=== PATIENT | female | born 1970 | race American Indian/Alaskan Native ===

== ENCOUNTER 2020-01-07 19:07 | Emergency (ER) | payer MEDICAID ==
[2020-01-07] MEDS ORDERED: methylPREDNISolone Sodium Succinate 125 MG/2 ML SDV IM ONE (19:35)
[2020-01-07] MEDS ORDERED: Albuterol/Ipratropium 3.0-0.5 MG/3 ML Neb Soln NEB ONE (19:35)
--- NOTE | 2020-01-07 21:05 | EDM.PDOC ---
ED HPI GENERAL MEDICAL PROBLEM - General Chief Complaint: Respiratory Problem Stated Complaint: cough Time Seen by Provider: 01/07/20 19:15 Source of Information: Reports: Patient History Limitations: Reports: No Limitations - History of Present Illness INITIAL COMMENTS - FREE TEXT/NARRATIVE: Patient presented to the ED because of coughing and dyspnea for 2 days. The cough is mostly non-productive,denies having fever,chills or malaise. She ran out of her albuteol inhaler since last week. 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: Musculoskeletal History: Reports: Fracture, Other (See Below) Other Musculoskeletal History: several fractures in hands and fingers Dermatologic History: Reports: Eczema - Past Surgical History GI Surgical History: Reports: Cholecystectomy Female Surgical History: Reports: Section, Hysterectomy Endocrine Surgical History: Reports: Thyroid Biopsy, Thyroidectomy Social & Family History - Family History Family Medical History: Noncontributory - Tobacco Use Smoking Status *Q: Former Smoker Used Tobacco, but Quit: Yes Month/Year Tobacco Last Used: 12/09 - Caffeine Use Caffeine Use: Reports: Coffee, Soda - Recreational Drug Use Recreational Drug Use: No ED ROS GENERAL - Review of Systems Review Of Systems: See Below Constitutional: Reports: No Symptoms HEENT: Reports: No Symptoms Respiratory: Reports: Shortness of Breath, Wheezing Cardiovascular: Reports: No Symptoms Endocrine: Reports: No Symptoms GI/Abdominal: Reports: No Symptoms : Reports: No Symptoms Musculoskeletal: Reports: No Symptoms Skin: Reports: No Symptoms Neurological: Reports: No Symptoms Psychiatric: Reports: No Symptoms ED EXAM, GENERAL - Physical Exam Exam: See Below Exam Limited By: No Limitations General Appearance: Alert, No Apparent Distress Eye Exam: Bilateral Eye: PERRL Ears: Normal External Exam, Normal Canal, Hearing Grossly Normal Nose: Normal Inspection, Normal Mucosa, No Blood Throat/Mouth: Normal Inspection, Normal Lips Head: Atraumatic, Normocephalic Neck: Normal Inspection, Supple, Non-Tender, Full Range of Motion Respiratory/Chest: No Respiratory Distress, Lungs Clear, Rhonchi, Wheezing Cardiovascular: Normal Peripheral Pulses, Regular Rate, Rhythm, No Edema, No Gallop, No Rub GI/Abdominal: Normal Bowel Sounds, Soft, Non-Tender, No Organomegaly Back Exam: Normal Inspection, Full Range of Motion Extremities: Normal Inspection, Normal Range of Motion Neurological: Alert, Oriented, CN II-XII Intact, Normal Cognition, Normal Gait, No Motor/Sensory Deficits Course - Vital Signs Text/Narrative:: CXR-nek duoneb x1 solumedrol 125 mg IM x1 Last Recorded V/S: Last Vital Signs Temp 36.8 C 01/07/20 19:10 Pulse 98 01/07/20 21:03 Resp 20 01/07/20 21:03 BP 134/83 01/07/20 21:03 Pulse Ox 96 01/07/20 21:03 - Orders/Labs/Meds Orders: Active Orders 24 hr Category Date Time Status RT Aerosol Therapy [RC] ASDIRECTED Care 01/07/20 19:36 Active Chest 2V [CR] Stat Exams 01/07/20 19:36 Taken Meds: Medications Discontinued Medications Generic Name Dose Route Start Last Admin Trade Name Freq PRN Reason Stop Dose Admin Albuterol/Ipratropium 3 ml 01/07/20 19:35 01/07/20 19:49 Duoneb 3.0-0.5 Mg/3 Ml NEB 01/07/20 19:36 3 ml ONETIME ONE Administration Methylprednisolone Sodium Succinate 125 mg 01/07/20 19:35 01/07/20 19:49 Solu-Medrol IM 01/07/20 19:36 125 mg ONETIME ONE Administration Departure - Departure Time of Disposition: 21:00 Disposition: Home, Self-Care 01 Condition: Good Clinical Impression: Asthma exacerbation - Discharge Information Prescriptions: Albuterol [Ventolin HFA] 2 puff IH Q4H PRN #1 inhaler PRN Reason: wheezing/shortness of breath predniSONE 40 mg PO DAILY #10 tab Instructions: Asthma, Adult Referrals: PCP,None [Primary Care Provider] - Forms: ED Department Discharge Additional Instructions: please read discharge instructions on asthma exacerbation increase oral fluids prednisone 40 mg daily for 5 days albuterol inhaler, 2 puffs every 4-6 hours as needed for wheezing and shortness of breath follow up as needed Sepsis Event Note - Evaluation Sepsis Screening Result: No Definite Risk - Focused Exam Vital Signs: Vital Signs Temp Pulse Resp BP Pulse Ox 01/07/20 21:03 98 20 134/83 96 01/07/20 19:10 36.8 C 112 H 12 132/79 95 Date Exam was Performed: 01/07/20 Time Exam was Performed: 22:28 - My Orders Last 24 Hours: My Active Orders 01/07/20 19:36 RT Aerosol Therapy [RC] ASDIRECTED Chest 2V [CR] Stat - Assessment/Plan Last 24 Hours: My Active Orders 01/07/20 19:36 RT Aerosol Therapy [RC] ASDIRECTED Chest 2V [CR] Stat
--- NOTE | 2020-01-08 10:59 | CR ---
INDICATION: Cough, dyspnea. CHEST, 2 VIEWS: PA and lateral views of the chest, 01/07/20 - no comparisons. The heart appears normal in size and shape. Some minimal calcification suggested in the arch of the aorta. [id number] degenerative hypertrophic changes are noted off vertebral bodies in the lower thoracic spine. A definite active infiltrate or effusion was not identified. Overlying EKG leads are noted. IMPRESSION: No acute process. MTDD
== END 2020-01-07 21:13 | disposition home or self-care (01) ==
LOC: FB.ED 19:07
DX: J45.901 Unspecified asthma with (acute) exacerbation (principal); Z91.040 Latex allergy status; Z88.8 Allergy status to other drugs, medicaments and biological substances; Z87.891 Personal history of nicotine dependence
CPT/HCPCS: 71046; 94640; 96372; 99285; J2930; J7620-GY

== ENCOUNTER 2021-09-22 16:26 | Emergency (ER) | payer MEDICAID ==
--- NOTE | 2021-09-22 16:36 | EDM.PDOC ---
ED HPI GENERAL MEDICAL PROBLEM - General Stated Complaint: COUGH, SOB Time Seen by Provider: 09/22/21 16:35 Source of Information: Reports: Patient History Limitations: Reports: No Limitations - History of Present Illness INITIAL COMMENTS - FREE TEXT/NARRATIVE: 50-year-old female who reports Covid 19 infection on 08/09/2021 and she reports that since then she has had a persisting cough extend waned but over the past week she has noticed an increase in the cough with production of creamy white somewhat thick phlegm and the feeling of increased shortness of breath. She reports that she does cough to the point of emesis at times. She has been using her albuterol inhaler without much relief. She has tried opdy-tlo-ejjspgh medications without any relief. She has been able to drink liquids well. She d oes have pain in the lateral aspect of both chest that is worse with cough and feels like it's in the muscles. She has had no measured fever. She reports the pain in her chest with cough goes up to a 10/10. It is a sore in sharp-type pain. No abdominal pain. No dysuria or hematuria. There are no other associated signs or symptoms. There are no other modifying factors. 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 Erdk-[id number] medications.) Bilateral Upper Back Pain Score (Numeric/FACES): 10 - Related Data Allergies Allergy/AdvReac Type Severity Reaction Status Date / Time latex Allergy Other Verified 01/07/20 20:57 pseudoephedrine Allergy Other Verified 01/07/20 20:57 [From [facility]] Home Meds: Home Meds Albuterol [Proventil HFA] 2 puff INH ASDIRECTED PRN 01/07/20 [History] Azithromycin [Zithromax] 250 mg PO DAILY #4 tab 09/22/21 [Rx] predniSONE [Prednisone] 60 mg PO QAM 5 Days #15 tablet 09/22/21 [Rx] Past Medical History HEENT History: Reports: Impaired Vision Respiratory History: Reports: Asthma Musculoskeletal History: Reports: Fracture, Other (See Below) Other Musculoskeletal History: several fractures in hands and fingers Dermatologic History: Reports: Eczema - Past Surgical History GI Surgical History: Reports: Cholecystectomy Female Surgical History: Reports: Section, Hysterectomy Endocrine Surgical History: Reports: Thyroid Biopsy, Thyroidectomy Social & Family History - Tobacco Use Tobacco Use Status *Q: Unknown Ever Used Tobacco (Nonsmoker) - Caffeine Use Caffeine Use: Reports: Coffee, Soda - Alcohol Use Alcohol Use History: No ED ROS GENERAL - Review of Systems Review Of Systems: See Below Constitutional: Reports: Malaise. Denies: Fever, Chills HEENT: Denies: Throat Pain, Throat Swelling Respiratory: Reports: Shortness of Breath, Cough Cardiovascular: Reports: Chest Pain. Denies: Lightheadedness, Palpitations GI/Abdominal: Denies: Nausea, Vomiting : Denies: Dysuria, Hematuria Musculoskeletal: Denies: Back Pain, Leg Pain, Foot Pain Skin: Denies: Diaphoresis, Rash Neurological: Denies: Confusion, Dizziness Hematologic/Lymphatic: Denies: Easy Bleeding, Easy Bruising ED EXAM, GENERAL - Physical Exam Exam: See Below Exam Limited By: No Limitations General Appearance: Alert, WD/WN, Mild Distress, Other (Hacking cough. No respiratory distress.) Eye Exam: Bilateral Eye: EOMI, Normal Inspection, PERRL Ears: Normal External Exam, Hearing Grossly Normal Ear Exam: Bilateral Ear: Auricle Normal Nose: No Blood, Nasal Drainage Throat/Mouth: Normal Inspection, Normal Lips, Normal Teeth Head: Atraumatic, Normocephalic Respiratory/Chest: No Respiratory Distress, Lungs Clear, Normal Breath Sounds, N o Accessory Muscle Use, Chest Non-Tender Cardiovascular: Normal Peripheral Pulses, Regular Rate, Rhythm, No Edema Peripheral Pulses: 2+: Radial (L), Radial (R) GI/Abdominal: Normal Bowel Sounds, Soft, Non-Tender Back Exam: Normal Inspection, Full Range of Motion Extremities: Normal Inspection, Normal Range of Motion, Non-Tender, No Pedal Edema, Normal Capillary Refill Neurological: Alert, Oriented, CN II-XII Intact, Normal Cognition, No Motor/Sen rossy Deficits Psychiatric: Normal Affect Skin Exam: Warm, Dry, Intact, Normal Color, No Rash Course - Vital Signs Last Recorded V/S: Last Vital Signs Temp 36.7 C 09/22/21 16:26 Pulse 116 H 09/22/21 17:53 Resp 20 09/22/21 17:53 BP 153/87 H 09/22/21 17:53 Pulse Ox 94 L 09/22/21 17:53 - Orders/Labs/Meds Orders: Active Orders 24 hr Category Date Time Status RT Aerosol Therapy [RC] ASDIRECTED Care 09/22/21 16:49 Active Chest 2V [CR] Stat Exams 09/22/21 16:49 Taken Azithromycin [Zithromax] Med 09/22/21 18:37 Once 500 mg PO ONETIME ONE cefTRIAXone [Rocephin] Med 09/22/21 18:37 Once 1 gm IM ONETIME ONE Meds: Medications Discontinued Medications Generic Name Dose Route Start Last Admin Trade Name Freq PRN Reason Stop Dose Admin Albuterol 2.5 mg 09/22/21 16:47 09/22/21 17:02 Albuterol 0.083% 2.5 Mg/3 Ml Neb Soln NEB 09/22/21 16:48 2.5 mg ONETIME ONE Administration Albuterol/Ipratropium 3 ml 09/22/21 16:47 09/22/21 17:02 Albuterol/Ipratropium 3.0-0.5 Mg/3 Ml Neb Soln NEB 09/22/21 16:48 3 ml ONETIME ONE Administration Prednisone 60 mg 09/22/21 16:47 09/22/21 17:02 Prednisone 20 Mg Tab PO 09/22/21 16:48 60 mg ONETIME ONE Administration - Radiology Interpretation Free Text/Narrative:: Chest x-ray showed no definite infiltrate per my read. - Re-Assessments/Exams Free Text/Narrative Re-Assessment/Exam: 09/22/21 18:35: Air movement is improved. She has increased wheezing from before. She states she feels improved from before nebulizer treatment. Her O2 saturations are 94% on room air. Her pulse rate is up in the 110's but this is after a double albuterol neb. Nontoxic. Chest x-ray did not show any definite pneumonia. I will place the patient on Zithromax for 5 day course and will give her her first dose tonight.. I will also treat her with Rocephin 1 g IM. I will send prescriptions to her pharmacy for Zithromax and for prednisone. I have given her a spacer to use with the albuterol inhaler that she has to make it more effective. Scuffs all this with the patient and she is in agreement with this plan. Precautions and reasons for return to the emergency department were discussed with the patient while she was in the emergency department and were detailed in the patient's discharge instructions. Departure - Departure Time of Disposition: 18:45 Disposition: Home, Self-Care 01 Condition: Good Clinical Impression: Bronchitis Asthma exacerbation Qualifiers: Asthma severity: moderate Asthma persistence: persistent Qualified Code(s): J45.41 - Moderate persistent asthma with (acute) exacerbation - Discharge Information Prescriptions: predniSONE [Prednisone] 60 mg PO QAM 5 Days #15 tablet Azithromycin [Zithromax] 250 mg PO DAILY #4 tab Instructions: Acute Bronchitis, Adult, [id number], Asthma, Adult, [id number], How to Use a Metered Dose Inhaler Referrals: PCP,None [Primary Care Provider] - Additional Instructions: You appear to be having an exacerbation of your asthma. This appears to be associated with a bronchitis. The x-ray of your chest showed no definite pneumonia. You should increase your fluid intake. Use the spacer (that I gave to you) with your albuterol inhaler to make it more effective. Medication as prescribed (Zithromax, prednisone). Back to the emergency department for worse breathing, severe weakness, unrelenting vomiting or any other concerning signs or symptoms. Sepsis Event Note (ED) - Focused Exam Vital Signs: Vital Signs Temp Pulse Resp BP Pulse Ox 09/22/21 17:53 116 H 20 153/87 H 94 L 09/22/21 16:26 36.7 C 87 20 139/78 94 L - My Orders Last 24 Hours: My Active Orders 09/22/21 16:49 RT Aerosol Therapy [RC] ASDIRECTED Chest 2V [CR] Stat 09/22/21 18:37 Azithromycin [Zithromax] 500 mg PO ONETIME ONE cefTRIAXone [Rocephin] 1 gm IM ONETIME ONE - Assessment/Plan Last 24 Hours: My Active Orders 09/22/21 16:49 RT Aerosol Therapy [RC] ASDIRECTED Chest 2V [CR] Stat 09/22/21 18:37 Azithromycin [Zithromax] 500 mg PO ONETIME ONE cefTRIAXone [Rocephin] 1 gm IM ONETIME ONE
[2021-09-22] MEDS: Albuterol/Ipratropium 3.0-0.5 MG/3 ML Neb Soln NEB ONE (17:02)
[2021-09-22] MEDS: Albuterol 0.083% 2.5 MG/3 ML Neb Soln NEB ONE (17:02)
[2021-09-22] MEDS: predniSONE 20 MG Tab PO ONE (17:02)
[2021-09-22] MEDS: cefTRIAXone 1 GM Vial IM ONE (18:52)
[2021-09-22] MEDS: Azithromycin 500 MG Tab PO ONE (18:52)
--- NOTE | 2021-09-25 12:32 | CR ---
CHEST TWO VIEWS INDICATION: Cough, shortness of breath. FINDINGS: PA and lateral views of the chest 09/22/21 were compared with 01/07/20. The heart remains normal in size and shape. The aorta is increased in tortuosity compared with the previous study. Increased flattening of diaphragm leaves and interdigitation of diaphragm leaves suggests progressive COPD. Heavy markings compatible with pulmonary fibrosis are noted, mostly in the mid to lower lung espinoza without a definite consolidating pneumonia or effusion identified. Mild to moderate hypertrophic degenerative changes are noted in the thoracic spine. IMPRESSION: 1. COPD, progressive. 2. Pulmonary fibrosis. 3. ASD aorta. 4. DJD spine. MTDD
== END 2021-09-22 19:00 | disposition home or self-care (01) ==
LOC: FB.ED 16:26
DX: J45.41 Moderate persistent asthma with (acute) exacerbation (principal); Z91.040 Latex allergy status; Z88.8 Allergy status to other drugs, medicaments and biological substances; Z79.899 Other long term (current) drug therapy
CPT/HCPCS: 71046; 96372; 99285; A9270; J0696; J7512; J7620-GY